=== PATIENT | female | born 1985 | race Two or more races ===

== ENCOUNTER 2017-02-16 16:55 | Emergency (ER) | payer OTHER ==
[~2017-02-16] VITALS: Ht 160 cm; Wt 72.0 kg
[~2017-02-16 16:55] MED LIST: NOMED
[2017-02-16 16:59] VITALS: BP 162/99; PULSE 99; RESP 18; O2SAT 100
== END 2017-02-16 17:29 | disposition left against medical advice (07) ==
LOC: SED 16:55
DX: R25.1 Tremor, unspecified (principal); Z53.21 Procedure and treatment not carried out due to patient leaving prior to being seen by health care provider